=== PATIENT | male | born 1965 | race American Indian/Alaskan Native ===

== ENCOUNTER 2017-03-31 15:32 | Emergency (ER) | payer MEDICARE ==
[2017-03-31 15:36] VITALS: BP 108/73; PULSE 75; TEMP 97.7; O2SAT 99
--- NOTE | 2017-03-31 16:04 | C.PDOC ---
History Of Present Illness 51 y/o male presents to the ED with complaints of worsening chronic left knee pain for the past several days. Pt pending knee specialist evaluation 04/05/17 at [facility]. Pt states pain is worse with weight bearing and is unable to flex the knee due to pain and swelling. Knee is stiffer at the end of the day. Denies trauma. He reports trying a friend's percocet with relief from pain. Pt unable to take NSAIDs. Denies weakness, numbness or any other complaints. CO WORSENING CHRONIC L KNEE PAIN X SEV DAYS. PENDING KNEE SPECIALIST EVAL 04/05 @ [facility]. PS PAIN WORSE W WT BEAR, UNABLE TO FULLY FLEX KNEE DUE TO PAIN AND SWELLING. STIFFER AT END OF DAY. DENIES TRAUMA. TRIED A FRIEND'S PERCOCET W + RELIEF. UNABLE TO TAKE NSAIDS EXAM MILD DIST EXT LLE +MOD SWELL KNEE W CREPITUS UPON PATELLA PALPATION. LIMITED FULL FLEX DUE TO PAIN AND SWELL. NO DEFORM SKIN NEG Time Seen by Provider: 03/31/17 16:01 Chief Complaint (Nursing): Lower Extremity Problem/Injury History Per: Patient History/Exam Limitations: no limitations Onset/Duration Of Symptoms: Days Current Symptoms Are (Timing): Worse Severity: Moderate Recent travel outside of the [place]: No Past Medical History Reviewed: Historical Data, Nursing Documentation, Vital Signs Vital Signs: Last Vital Signs Temp 97.7 F 03/31/17 15:35 Pulse 75 03/31/17 15:35 Resp 18 03/31/17 16:41 BP 108/73 03/31/17 15:35 Pulse Ox 99 03/31/17 16:33 - Medical History PMH: HIV, HTN Family History: States: Unknown Family Hx - Social History Hx Alcohol Use: No Hx Substance Use: No - Immunization History Hx Tetanus Toxoid Vaccination: No Hx Influenza Vaccination: No Review Of Systems Musculoskeletal: Positive for: Other (left knee pain and swelling) Neurological: Negative for: Weakness, Numbness Physical Exam - Physical Exam Appears: Non-toxic, In Acute Distress (mild discomfort) Skin: Warm, Dry, No Rash, No Ecchymosis Head: Atraumatic, Normacephalic Extremity: No Tenderness, Capillary Refill (<2 seconds), No Deformity, Swelling (LLE moderate swelling to the knee with crepitus upon patella palpation.), Other (Limited full flexion due to pain and swelling) Pulses: Left Dorsalis Pedis: Normal Neurological/Psych: Oriented x3, Normal Speech, Normal Cognition, Normal Motor, Normal Sensation ED Course And Treatment O2 Sat by Pulse Oximetry: 99 (room air) Pulse Ox Interpretation: Normal Progress - Re-Evaluation Re-evaluation Note: 03/31/17 16:06 [place] RX REVIEWED LAST [facility]ARC RX TRAMADOL - Data Reviewed Data Reviewed: Other (njrx) Disposition Counseled Patient/Family Regarding: Diagnosis, Need For Followup, Rx Given - Disposition Referrals: YOUR,ORTHOPEDIST [Other] Disposition: HOME/ ROUTINE Disposition Time: 16:32 Condition: IMPROVED Prescriptions: oxyCODONE/Acetaminophen [Percocet 5/325 mg Tab] 1 tab PO QID PRN #20 tab PRN Reason: Pain Instructions: Chronic Pain (ED) Forms: [facility] (Kosovan) - Clinical Impression Clinical Impression: Chronic knee pain - Scribe Statement The provider has reviewed the documentation as recorded by the Lani Austin Provider Attestation: All medical record entries made by the Lani were at my direction and personally dictated by me. I have reviewed the chart and agree that the record accurately reflects my personal performance of the history, physical exam, medical decision making, and the department course for this patient. I have also personally directed, reviewed, and agree with the discharge instructions and disposition.
[2017-03-31 16:42] VITALS: RESP 18
== END 2017-03-31 16:42 | disposition home or self-care (01) ==
LOC: C.ER 15:32
DX: G89.29 Other chronic pain (principal); M25.562 Pain in left knee

== ENCOUNTER 2017-11-20 14:35 | Emergency (ER) | payer MEDICARE ==
[2017-11-20 14:57] VITALS: TEMP 97.8; O2SAT 98
[2017-11-20] MEDS ORDERED: Hydrocodone/Acetaminophen 5 mg /300 mg Tab PO STA (15:35)
[2017-11-20] MEDS ORDERED: Hydrocodone/Acetaminophen 5 mg /300 mg Tab PO ONE (15:39)
--- NOTE | 2017-11-20 15:40 | C.PDOC ---
History Of Present Illness [id number], presents to the emergency department with complaints of painful rash on his left anterior leg since yesterday. He has a Hx of HIV and is compliant with [facility]. Patient reports viral load is undetectable. Patient reports he has a prescription for Valtrex for herpes, and thought he had shingles so he took his medication. Denies fever, nausea/vomiting. Time Seen by Provider: 11/20/17 15:22 Chief Complaint (Nursing): Abnormal Skin Integrity History Per: Patient History/Exam Limitations: no limitations Past Medical History Reviewed: Historical Data, Nursing Documentation, Vital Signs Vital Signs: Last Vital Signs Temp 97.8 F 11/20/17 14:54 Pulse 85 11/20/17 16:12 Resp 20 11/20/17 16:12 BP 121/75 11/20/17 16:12 Pulse Ox 98 11/20/17 18:59 - Medical History PMH: HIV, HTN Family History: States: No Known Family Hx - Social History Hx Alcohol Use: No Hx Substance Use: No - Immunization History Hx Tetanus Toxoid Vaccination: No Hx Influenza Vaccination: No Hx Pneumococcal Vaccination: Yes Review Of Systems Constitutional: Negative for: Fever, Chills Skin: Positive for: Rash Physical Exam - Physical Exam Appears: Well, Non-toxic, No Acute Distress Skin: Warm, Dry, Rash (Left anterior thigh l4 dermatome w/ macular rash, erythematous.) Eye(s): bilateral: PERRL Neck: Normal ROM Cardiovascular: Rhythm Regular, No Murmur Respiratory: Normal Breath Sounds, No Accessory Muscle Use Extremity: Normal ROM, No Deformity, No Swelling Neurological/Psych: Oriented x3, Normal Speech ED Course And Treatment O2 Sat by Pulse Oximetry: 98 (RA) Pulse Ox Interpretation: Normal Progress Note: Patient treated with Valtrex and Vicodin. Will be discharged with Rx to treat sx and f/u utpatient with PMD. Disposition Counseled Patient/Family Regarding: Diagnosis, Need For Followup, Rx Given - Disposition Referrals: [facility] [Outside] Disposition: HOME/ ROUTINE Disposition Time: 15:40 Condition: STABLE Additional Instructions: FOLLOW UP WITH YOUR DOCTOR IN 1-2 DAYS USE MEDICATIONS DIRECTED RETURN TO ER IF SYMPTOMS WORSEN Prescriptions: Hydrocodone/Acetaminophen [Hydrocodone-Acetamin 5-325 mg] 1 each PO Q6 PRN #15 tablet PRN Reason: PAIN Valacyclovir HCl [Valtrex] 1,000 mg PO Q8 #21 tablet Instructions: Shingles Forms: [facility] (Icelandic) Print Language: GREEK - POA Present On Arrival: None - Clinical Impression Clinical Impression: Shingles - Scribe Statement The provider has reviewed the documentation as recorded by the Scribe (Calixto Waldron) All medical record entries made by the Scribe were at my direction and personally dictated by me. I have reviewed the chart and agree that the record accurately reflects my personal performance of the history, physical exam, medical decision making, and the department course for this patient. I have also personally directed, reviewed, and agree with the discharge instructions and disposition.
[2017-11-20 16:13] VITALS: BP 121/75; PULSE 85; RESP 20
== END 2017-11-20 16:13 | disposition home or self-care (01) ==
LOC: C.ER 14:35
DX: B02.9 Zoster without complications (principal)